=== PATIENT | female | born 1950 | race Two or more races ===

== ENCOUNTER 2017-04-25 20:51 | Emergency (ER) | payer OTHER ==
[~2017-04-25] VITALS: Ht 160 cm; Wt 54.0 kg
[2017-04-25] MEDS ORDERED: MORPHINE SULFATE 4 MG/ML CPJ (NOT FOR IM USE) IV STA (23:33)
[2017-04-25] MEDS ORDERED: ONDANSETRON HCL 4MG/2ML INJ IV STA (23:33)
[2017-04-25] MEDS ORDERED: SODIUM CHLORIDE 0.9% 1,000 ML IV ONE (23:33)
[2017-04-26 00:40] LABS: BASOPHILS % 0.3 % (0.0-2.0); EOSINOPHILS % 1.1 % (0.0-5.0); HEMATOCRIT. 39.6 % (36.0-48.0); HEMOGLOBIN. 12.9 g/dL (12.0-16.0); LYMPHOCYTES % 16.5 % (20.0-50.0); MEAN CORPUSCULAR HEMOGLOBIN 27.1 pg (28.0-32.0); MEAN CORPUSCULAR VOLUME 83.3 fL (81.0-99.0); MEAN PLATELET VOLUME 9.7 fl (7.4-10.4); MONOCYTES % 4.6 % (2.0-8.0); NEUTROPHILS % 77.5 % (40.0-76.0); PLATELET 224 x1000/uL (130-400); RED BLOOD CELL COUNT 4.76 mill/uL (4.2-5.4); RED CELL DISTRIBUTION WIDTH 13.6 % (11.6-14.6)
[2017-04-26 00:55] LABS: CHLORIDE 105 mEq/L (98-107)
[2017-04-26] MEDS ORDERED: ONDANSETRON HCL 4MG/2ML INJ IV ONE (01:30)
[2017-04-26] MEDS ORDERED: PROPOFOL 200MG/20ML VIAL IV ONE (01:30)
[2017-04-26 03:43] VITALS: BP 115/54
== END 2017-04-26 03:53 | disposition short-term general hospital (02) ==
LOC: ER 21:19 → CANBEDREQ 04-26 04:42
DX: R55 Syncope and collapse (principal); S52.272A Monteggia's fracture of left ulna, initial encounter for closed fracture; V49.40XA Driver injured in collision with unspecified motor vehicles in traffic accident, initial encounter; Y93.89 Activity, other specified; Y92.410 Unspecified street and highway as the place of occurrence of the external cause; F41.9 Anxiety disorder, unspecified
CPT/HCPCS: 24620; 36415; 70450; 71045; 73060; 73090; 80053; 84484; 85025; 93005; 96361; 96374; 96375; 96376; 99285; J2270; J2405; J7030; Z7610; A4565; J2704